=== PATIENT | female | born 1950 | race Caucasian/White ===

== ENCOUNTER 2018-07-28 04:01 | Emergency (ER) | payer BC ==
[~2018-07-28] VITALS: Ht 157.5 cm; Wt 79.4 kg
[2018-07-28] MEDS ORDERED: NS IV 1000 ML 1,000 ML IV ONE (04:26)
[2018-07-28] MEDS ORDERED: HYOSCYAMINE 0.125 MG (LEVSIN) TAB PO ONE (04:30)
[2018-07-28] MEDS ORDERED: PANTOPRAZOLE 40 MG (PROTONIX) VIAL IV ONE (04:30)
[2018-07-28] MEDS ORDERED: ONDANSETRON 4 MG/2 ML (SDV) Z0FRAN IVP ONE (04:30)
[2018-07-28] MEDS ORDERED: KETOROLAC 30 MG/ML VIAL IVP ONE (04:30)
--- NOTE | 2018-07-28 04:36 | ED Abdominal Pain ---
General Stated Complaint: STOMACH PAIN, DIAHRREA Source of Information: Patient History of Present Illness Date Seen by Provider: Jul 28, 2018 Time Seen by Provider: 04:15 Initial Comments PT ARRIVES VIA POV FROM HOME C/O SEVERE EPIGASTRIC PAIN, RADIATING AROUND TO RIGHT MID BACK PAIN WOKE HER UP AT 0200 C/O NAUSEA AND HAS VOMITED A COUPLE OF TIMES HAS HAD A LARGE AMOUNT OF DIARRHEA--AT LEAST 5-6 TIMES. NO BLACK/BLOODY/TARRY STOOLS NO PROBLEMS URINATING NO KNOWN FEVER NO HISTORY OF SIMILAR NO PRIOR ABDOMINAL SURGERIES NO SICK CONTACTS OR SUSPICIOUS. PT AND ATE THE SAME THING--EACH HAD HALF OF THE SAME SANDWICH. PCP: GARRET PARTIDA AT [facility] Allergies and Home Medications Allergies Coded Allergies: Sulfa (Sulfonamide Antibiotics) (Verified Allergy, Unknown, 07/28/18) Home Medications Hyoscyamine Sulfate 0.125 Mg Tab.subl, 1-2 TAB SL Q4H Prescribed by: ACOSTA GOMEZ on 07/28/18 0608 Lactobacillus Acidophilus 1 Each Capsule, 2 EACH PO QID Prescribed by: ACOSTA GOMEZ on 07/28/18 0608 Nitrofurantoin Monohyd/M-Cryst 100 Mg Capsule, 100 MG PO BID Prescribed by: ACOSTA GOMEZ on 07/28/18 0608 Ondansetron 4 Mg Tab.rapdis, 4 MG PO Q4H Prescribed by: ACOSTA GOMEZ on 07/28/18 0608 Pantoprazole Sodium 40 Mg Tablet.dr, 40 MG PO DAILY Prescribed by: ACOSTA GOMEZ on 07/28/18 06 Patient Home Medication List Home Medication List Reviewed: Yes Review of Systems Review of Systems Constitutional: no symptoms reported Respiratory: No Symptoms Reported; Denies Cough, Denies Shortness of Air Cardiovascular: No Symptoms Reported; Denies Chest Pain, Denies Lightheadedness, Denies Palpitations Gastrointestinal: See HPI, Abdominal Pain, Diarrhea, Nausea, Poor Appetite, Vomiting Genitourinary: No Symptoms Reported Musculoskeletal: see HPI, back pain Skin: no symptoms reported Psychiatric/Neurological: No Symptoms Reported Endocrine: No Symptoms Reported Hematologic/Lymphatic: No Symptoms Reported Past Qkknwut-Ggebkt-Mpefue Hx Patient Social History Alcohol Use: Occasionally Uses Recreational Drug Use: No Smoking Status: Never a Smoker Recent Foreign Travel: No Contact w/Someone Who Travel: No Past Medical History Surgeries: Yes (BILATERAL KNEE REPLACEMENTS; EGD/COLONOSCOPY 2008) Joint Replacement, Orthopedic, Tonsillectomy Respiratory: No Cardiac: Yes High Cholesterol, Hypertension 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 oz. kg; BMI Method: General Appearance: WD/WN, other (WELL GROOMED. LOOKS UNCOMFORTABLE, HOLDING EPIGASTRIC AREA. ) HEENT: PERRL/EOMI; No scleral icterus (R), No scleral icterus (L) Neck: normal inspection Respiratory: normal breath sounds, no respiratory distress, no accessory muscle use Cardiovascular: normal peripheral pulses, regular rate, rhythm, no edema, no JVD, no murmur Gastrointestinal: normal bowel sounds, soft, no organomegaly, no pulsatile mass; No distended; guarding (MILD GUARDING OF EPIGASTRIC AREA), tenderness (MODERATE TENDERNESS TO EPIGASTRIC AREA AND LATERAL LUQ AND LEFT LOWER POSTERIOR RIB AREA); No hernia, No mass Extremities: normal inspection, no pedal edema, normal capillary refill Back: CVA tenderness (L) 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, no motor/sensory deficits, alert, oriented x 3 Skin: normal color, warm/dry; No rash Progress/Results/Core Measures Results/Orders Lab Results Laboratory Tests Test 07/28/18 04:30 07/28/18 04:53 07/28/18 05:00 Range/Units White Blood Count 19.9 H 4.3-11.0 10^3/uL Red Blood Count 5.53 4.35-5.85 10^6/uL Hemoglobin 15.6 11.5-16.0 G/DL Hematocrit 47 35-52 % Mean Corpuscular Volume 85 80-99 FL Mean Corpuscular Hemoglobin 28 25-34 PG Mean Corpuscular Hemoglobin Concent 33 32-36 G/DL Red Cell Distribution Width 14.0 10.0-14.5 % Platelet Count 280 130-400 10^3/uL Mean Platelet Volume 11.5 H 7.4-10.4 FL Neutrophils (%) (Auto) 80 H 42-75 % Lymphocytes (%) (Auto) 11 L 12-44 % Monocytes (%) (Auto) 7 0-12 % Eosinophils (%) (Auto) 2 0-10 % Basophils (%) (Auto) 0 0-10 % Neutrophils # (Auto) 15.9 H 1.8-7.8 X 10^3 Lymphocytes # (Auto) 2.1 1.0-4.0 X 10^3 Monocytes # (Auto) 1.5 H 0.0-1.0 X 10^3 Eosinophils # (Auto) 0.3 0.0-0.3 10^3/uL Basophils # (Auto) 0.0 0.0-0.1 10^3/uL Neutrophils % (Manual) 83 % Lymphocytes % (Manual) 7 % Monocytes % (Manual) 9 % Eosinophils % (Manual) 1 % Blood Morphology Comment NORMAL Sodium Level 140 135-145 MMOL/L Potassium Level 4.1 3.6-5.0 MMOL/L Chloride Level 106 98-107 MMOL/L Carbon Dioxide Level 19 L 21-32 MMOL/L Anion Gap 15 H 5-14 MMOL/L Blood Urea Nitrogen 16 7-18 MG/DL Creatinine 0.89 0.60-1.30 MG/DL Estimat Glomerular Filtration Rate > 60 BUN/Creatinine Ratio 18 Glucose Level 153 H 70-105 MG/DL Calcium Level 10.1 8.5-10.1 MG/DL Corrected Calcium 8.5-10.1 MG/DL Magnesium Level 1.8 1.8-2.4 MG/DL Total Bilirubin 0.5 0.1-1.0 MG/DL Aspartate Amino Transf (AST/SGOT) 23 5-34 U/L Alanine Aminotransferase (ALT/SGPT) 30 0-55 U/L Alkaline Phosphatase 88 40-136 U/L Total Protein 7.8 6.4-8.2 GM/DL Albumin 4.7 H 3.2-4.5 GM/DL Amylase Level 94 25-125 U/L Lipase 23 8-78 U/L Glucometer 132 H 70-110 MG/DL Urine Color YELLOW Urine Clarity CLEAR Urine pH 5 5-9 Urine Specific [place] 1.025 H 1.016-1.022 Urine Protein 1+ H NEGATIVE Urine Glucose (UA) NEGATIVE NEGATIVE Urine Ketones 1+ H NEGATIVE Urine Nitrite NEGATIVE NEGATIVE Urine Bilirubin 1+ H NEGATIVE Urine Urobilinogen NORMAL NORMAL MG/DL Urine Leukocyte Esterase 3+ H NEGATIVE Urine RBC (Auto) NEGATIVE NEGATIVE Urine RBC NONE /HPF Urine WBC 2-5 /HPF Urine Squamous Epithelial Cells 5-10 /HPF Urine Crystals NONE /LPF Urine Bacteria FEW H /HPF Urine Casts PRESENT /LPF Urine Hyaline Casts 2-5 H /LPF Urine Mucus SMALL H /LPF Urine Culture Indicated YES My Orders Orders - ACOSTA GOMEZ DO Ed Iv/Invasive Line Start (07/28/18 04:19) Monitor-Rhythm Ecg Trace Only (07/28/18 04:19) Straight Cath For Spec.-Adult (07/28/18 04:19) Amylase (07/28/18 04:19) Cbc With Automated Diff (07/28/18 04:19) Comprehensive Metabolic Panel (07/28/18 04:19) Lipase (07/28/18 04:19) Magnesium (07/28/18 04:19) Ua Culture If Indicated (07/28/18 04:19) Ed Iv/Invasive Line Start (07/28/18 04:26) Ns Iv 1000 Ml (Sodium Chloride 0.9%) (07/28/18 04:26) Accucheck Stat ONCE (07/28/18 04:26) Ekg Tracing (07/28/18 04:26) Ondansetron Injection (Zofran Injectio (07/28/18 04:30) Hyoscyamine Sl Tablet (Levsin Sl Tablet) (07/28/18 04:30) Ketorolac Injection (Toradol Injection) (07/28/18 04:30) Pantoprazole Injection (Protonix Injecti (07/28/18 04:30) Manual Differential (07/28/18 04:30) Ct Abdomen/Pelvis W (07/28/18 04:59) Acute Abd Series (07/28/18 04:59) Urine Culture (07/28/18 05:00) Iohexol Injection (Omnipaque 350 Mg/Ml 1 (07/28/18 05:45) Received Contrast (Hold Metformin- Contr (07/28/18 05:45) Ns (Ivpb) (Sodium Chloride 0.9%) (07/28/18 05:45) Medications Given in ED Current Medications Medications Dose Ordered Sig/Tomas Route Start Time Stop Time Status Last Admin Dose Admin Hyoscyamine Sulfate 0.025 mg ONCE ONCE PO 07/28/18 04:30 07/28/18 04:31 DC 07/28/18 04:40 0.025 MG Iohexol 100 ml ONCE ONCE IV 07/28/18 05:45 07/28/18 05:46 DC 07/28/18 05:52 100 ML Ketorolac Tromethamine 30 mg ONCE ONCE IVP 07/28/18 04:30 07/28/18 04:31 DC 07/28/18 04:39 30 MG Ondansetron HCl 8 mg ONCE ONCE IVP 07/28/18 04:30 07/28/18 04:31 DC 07/28/18 04:39 8 MG Pantoprazole 40 mg ONCE ONCE IV 07/28/18 04:30 07/28/18 04:31 DC 07/28/18 04:39 40 MG Sodium Chloride 250 ml ONCE ONCE IV 07/28/18 05:45 07/28/18 05:46 DC 07/28/18 05:52 80 ML Sodium Chloride 1,000 ml @ 0 mls/hr Q0M ONCE IV 07/28/18 04:26 07/28/18 04:28 DC 07/28/18 04:39 999 MLS/HR Vital Signs/I&O 07/28/18 04:05 Temp 97.9 Pulse 112 Resp 18 B/P (MAP) 148/97 (114) Pulse Ox 99 O2 Delivery Room Air Progress Progress Note : Progress Note SYMPTOMS RESOLVED WITH MEDICATIONS PT TOLERATING WATER AND ICE CHIPS PRIOR TO DISMISSAL NO VOMITING OR DIARRHEA DURING ER STAY Initial ECG Impression Date: Jul 28, 2018 Initial ECG Impression Time: 05:10 Initial ECG Rate: 81 Initial ECG Rhythm: Normal Sinus Initial ECG Impression: Nonspecific Changes Diagnostic Imaging Comments ABDOMEN XRAYS--NO ACUTE PROCESS, PENDING RADIOLOGIST REVIEW CT ABDOMEN/PELVIS--DIFFUSE FLUID-FILLED ADN HYPEREMIC SMALL AND LARGE BOWEL-C/W GASTROENTERITIS, COLONIC DIVERTICULOSIS. PER [facility] VIA FAX @ 1181 Reviewed: Reviewed by Me Departure Impression Primary Impression: Gastroenteritis Additional Impressions: Upper abdominal pain Urinary tract infection Disposition: HOME, SELF-CARE Condition: Improved Departure-Patient Inst. Referrals: REYES PARTIDA (PCP) Primary Care Physician Patient Instructions: Urinary Tract Infection, Adult (DC), Viral Gastroenteritis, Adult (DC) Add. Discharge Instructions: CLEAR LIQUIDS--WATER, BROTH, JELLO, GATORADE WHEN YOUR NAUSEA IS BETTER, ADD BRATS DIET TO CLEAR LIQUIDS--BANANAS, RICE, APPLESAUCE, TOAST, SALTINES FOLLOW UP WITH YOUR DR IN 2-3 DAYS IF NO BETTER RETURN TO ER IF WORSE Scripts Pantoprazole Sodium (Protonix) 40 Mg Tablet.dr 40 MG PO DAILY, #15 TAB Prov: ACOSTA GOMEZ DO 07/28/18 Ondansetron (Ondansetron Odt) 4 Mg Tab.rapdis 4 MG PO Q4H for Nausea/Vomiting, #10 TAB Prov: KRISTAL GOMEZA K DO 07/28/18 Nitrofurantoin Monohyd/M-Cryst (Macrobid 100 mg Capsule) 100 Mg Capsule 100 MG PO BID, #20 CAP Prov: ACOSTA GOMEZ DO 07/28/18 Hyoscyamine Sulfate (Levsin-Sl) 0.125 Mg Tab.subl 1-2 TAB SL Q4H for Abdominal Pain, #15 TAB Prov: ACOSTA GOMEZ K 07/28/18 Lactobacillus Acidophilus (Acidophilus) 1 Each Capsule 2 EACH PO QID, #80 CAP Prov: KRISTAL GOMEZA K DO 07/28/18 KRISTAL GOMEZA Davin HATHAWAY Jul 28, 2018 04:36
[2018-07-28 04:37] LABS: BASOPHILS % (AUTO) 0 % (0-10); EOSINOPHILS # (AUTO) 0.3 10^3/uL (0.0-0.3); EOSINOPHILS % (AUTO) 2 % (0-10); HEMATOCRIT 47 % (35-52); HEMOGLOBIN 15.6 G/DL (11.5-16.0); LYMPHOCYTES # (AUTO) 2.1 X 10^3 (1.0-4.0); LYMPHOCYTES % (AUTO) 11 % (12-44); MEAN CORPUSCULAR HEMOGLOBIN 28 PG (25-34); MEAN CORPUSCULAR HGB CONC 33 G/DL (32-36); MEAN CORPUSCULAR VOLUME 85 FL (80-99); MEAN PLATELET VOLUME 11.5 FL (7.4-10.4); MONOCYTES # (AUTO) 1.5 X 10^3 (0.0-1.0); MONOCYTES % (AUTO) 7 % (0-12); NEUTROPHILS # (AUTO) 15.9 X 10^3 (1.8-7.8); NEUTROPHILS % (AUTO) 80 % (42-75); PLATELET COUNT 280 10^3/uL (130-400); WHITE BLOOD COUNT 19.9 10^3/uL (4.3-11.0)
[2018-07-28 04:54] LABS: ALANINE AMINOTRANSFERASE 30 U/L (0-55); ALBUMIN 4.7 GM/DL (3.2-4.5); ALKALINE PHOSPHATASE 88 U/L (40-136); AMYLASE 94 U/L (25-125); BILIRUBIN,TOTAL 0.5 MG/DL (0.1-1.0); BUN/CREATININE RATIO 18; CALCIUM 10.1 MG/DL (8.5-10.1); CARBON DIOXIDE 19 MMOL/L (21-32); CHLORIDE 106 MMOL/L (98-107); CREATININE SERUM 0.89 MG/DL (0.60-1.30); GFR ESTIMATED > 60; GLUCOSE 153 MG/DL (70-105); LIPASE 23 U/L (8-78); MAGNESIUM 1.8 MG/DL (1.8-2.4); POTASSIUM 4.1 MMOL/L (3.6-5.0); SODIUM 140 MMOL/L (135-145); TOTAL PROTEIN 7.8 GM/DL (6.4-8.2)
[2018-07-28 04:56] LABS: EOSINOPHILS % (MANUAL) 1 %; LYMPHOCYTES % (MANUAL) 7 %; MONOCYTES % (MANUAL) 9 %; NEUTROPHILS % (MANUAL) 83 %; RBC MORPH NORMAL
[2018-07-28 05:08] LABS: CLARITY,URINE CLEAR; COLOR,URINE YELLOW; GLUCOSE, URINE (UA) NEGATIVE (NEGATIVE); KETONES,URINE 1+ (NEGATIVE); LEUKOCYTE ESTERASE ,URINE 3+ (NEGATIVE); NITRITE,URINE NEGATIVE (NEGATIVE); PH,URINE 5 (5-9); PROTEIN,URINE 1+ (NEGATIVE); UROBILINOGEN,URINE NORMAL (NORMAL)
[2018-07-28 05:15] LABS: BACTERIA,URINE FEW /HPF; BILIRUBIN,URINE 1+ (NEGATIVE)
[2018-07-28] MEDS ORDERED: IOHEXOL 350 MG/ML 100 ML (OMNIPAQUE 350) VIAL IV ONE (05:45)
[2018-07-28] MEDS ORDERED: HOLD METFORMIN - RECEIVED CONTRAST 20 ML VIAL IV SCH (05:45)
[2018-07-28] MEDS ORDERED: NS 250 ML (IVPB) BAG IV ONE (05:45)
[2018-07-28] MEDS ORDERED: HYOS0.1283 SL (06:08)
[2018-07-28] MEDS ORDERED: ONDA4TAB11 PO (06:08)
[2018-07-28] MEDS ORDERED: PANT40TA2 PO (06:08)
[2018-07-28] MEDS ORDERED: NITR-65 PO (06:08)
[2018-07-28] MEDS ORDERED: LACT1CAP8 PO (06:08)
[2018-07-28 06:31] VITALS: BP 112/59
--- NOTE | 2018-07-28 07:01 | Diagnostic Imaging Report ---
PROCEDURE: CT abdomen and pelvis with contrast. TECHNIQUE: Multiple contiguous axial images were obtained through the abdomen and pelvis after administration of intravenous contrast. Auto Exposure Controls were utilized during the CT exam to meet ALARA standards for radiation dose reduction. INDICATION: Abdominal pain radiating to left flank. Vomiting. Diarrhea. COMPARISON: Abdominal series radiographs 07/28/2018. FINDINGS: The liver, gallbladder, pancreas, spleen, adrenals, collecting systems and bladder are negative. Reproductive structures grossly unremarkable. Mild colonic diverticulosis without evidence of active diverticulitis. There is fluid throughout most of the small bowel and colon. No evidence of bowel obstruction. No free intraperitoneal air or fluid. No lymphadenopathy. No acute osseous findings. IMPRESSION: 1. Fluid throughout most of the small bowel and colon without dilatation may be due to an enteritis. 2. Colonic diverticulosis without evidence of active diverticulitis. Dictated by: Dictated on workstation # [id number]
--- NOTE | 2018-07-28 07:13 | Diagnostic Imaging Report ---
EXAM: ACUTE ABD SERIES INDICATION: Abdominal pain radiating to left flank. COMPARISON: None. FINDINGS: Normal heart size and pulmonary vascularity. No dense consolidation, pleural effusion or pneumothorax. No acute osseous findings. No free intraperitoneal air. Nonspecific bowel gas pattern. No large stool burden. IMPRESSION: No acute radiographic findings in the chest or abdomen. Dictated by: Dictated on workstation # [id number]
== END 2018-07-28 06:32 | disposition home or self-care (01) ==
LOC: EDUNIT# 04:01 → ER 04:04
DX: K52.9 Noninfective gastroenteritis and colitis, unspecified (principal); N39.0 Urinary tract infection, site not specified; E78.00 Pure hypercholesterolemia, unspecified; I10 Essential (primary) hypertension; E11.9 Type 2 diabetes mellitus without complications; Z87.19 Personal history of other diseases of the digestive system; Z88.2 Allergy status to sulfonamides; Z96.653 Presence of artificial knee joint, bilateral; Z90.89 Acquired absence of other organs
CPT/HCPCS: 36415; 74022; 74177; 80053; 81000; 82150; 82962; 83690; 83735; 85007; 85027; 87088; 93005; 93041; 96361; 96374; 96375

== ENCOUNTER 2020-09-03 06:47 | Outpatient (CLI) | payer MEDICARE ==
[~2020-09-03] VITALS: Ht 157.5 cm; Wt 75.0 kg
[~2020-09-03 06:47] MED LIST: HYOS0.1283 SL; LACT1CAP8 PO; NITR-65 PO; ONDA4TAB11 PO; PANT40TA2 PO
[2020-09-04] MEDS ORDERED: AMLO-168 PO (12:54)
[2020-09-04] MEDS ORDERED: CHOL-34 PO (12:54)
[2020-09-04] MEDS ORDERED: FLAX10004 PO (12:54)
[2020-09-04] MEDS ORDERED: OMEG1CAP58 PO (12:54)
[2020-09-04] MEDS ORDERED: ROSU5TAB13 PO (12:54)
[2020-09-04] MEDS ORDERED: METF-397 PO (12:54)
[2020-09-04] MEDS ORDERED: UBID100C17 PO (12:54)
[2020-09-04] MEDS ORDERED: LACT1CAP39 PO (12:54)
[2020-09-04] MEDS ORDERED: NFBIOT1000 PO (12:55)
== END 2020-09-04 13:09 | disposition home or self-care (01) ==
LOC: PREOP 06:47
PROVIDERS: ATTEND Specialist
DX: Z01.818 Encounter for other preprocedural examination (principal)

== ENCOUNTER 2020-09-07 08:16 | Day surgery (SDC) | payer MEDICARE, OTHER ==
[~2020-09-07] VITALS: Ht 157.5 cm; Wt 75.0 kg
[~2020-09-07 08:16] MED LIST changes: +AMLO-168 PO; +CHOL-34 PO; +FLAX10004 PO; +LACT1CAP39 PO; +METF-397 PO; +NFBIOT1000 PO; +OMEG1CAP58 PO; +ROSU5TAB13 PO; +UBID100C17 PO
[2020-09-07] MEDS ORDERED: MOXIFLOXACIN OPHTH SOLN 5 MG/ML 0.3 ML SYRINGE OP ONE (08:30)
[2020-09-07] MEDS ORDERED: LIDOCAINE PF 1% 2 ML VIAL IR PRN (08:30)
[2020-09-07] MEDS ORDERED: POVIDONE (BETADINE) OPHTH SOLN 5% 30 ML OP ONE (08:30)
[2020-09-07] MEDS ORDERED: TIMOLOL MALEATE 0.5% 5 ML (TIMOPTIC) BTL OU PRN (08:30)
[2020-09-07] MEDS: TETRACAINE 0.5% OPHTH SOLN 4 ML BTL (SINGLE DOSE ONLY) OU PRN ×4 (08:37→08:54)
[2020-09-07] MEDS: TROPICAMIDE 1% OPH SOLN (MYDRIACYL) 15 ML BTL OP SCH ×3 (08:43→08:54)
[2020-09-07] MEDS: PHENYLEPHRINE 10% OPHTH (NEO-SYN) 5 ML BTL OU SCH ×3 (08:44→08:54)
[2020-09-07 08:46] VITALS: BP 167/81
[2020-09-07] MEDS ORDERED: MIDAZOLAM 2 MG/2 ML (VERSED) VIAL ONE (09:17)
--- NOTE | 2020-09-07 09:27 | Ophthalmologist Pre-Op Note ---
Pre-Operative Progress Note H&P Reviewed The H&P was reviewed, patient examined and no changes noted. Date H&P Reviewed: Sep 07, 2020 Time H&P Reviewed: 09:27 Pre-Op Dx Cataract, Right Eye JAMES MELISSA MD Sep 07, 2020 09:27
--- NOTE | 2020-09-07 09:52 | Ophthalmology Operative Report ---
Cataract removal/placement IOL PREOPERATIVE DIAGNOSIS: Cataract Right Eye POSTOPERATIVE DIAGNOSIS: Cataract Right Eye PROCEDURE: Cataract removal and placement of posterior chamber implant, right eye SURGEON: Richar Melissa ANESTHESIA: Topical with sedation COMPLICATIONS: None ESTIMATED BLOOD LOSS: Minimal DESCRIPTION OF PROCEDURE: After proper informed consent was obtained, the patient, a 70 female, was taken to the Operating Room and the right eye was anesthetized with tetracaine. The right eye was then prepped and draped in the usual manner. A wire lid speculum was placed. A paracentesis was made at the left hand position. Preservative free lidocaine was injected into the anterior chamber followed by viscoelastic. A clear corneal incision was made in the temporal position. A capsulorrhexis was preformed and the central nuclear and cortical material were removed. The posterior capsule was polished and Pavel 21.0 AU00T0 IOL was placed into the capsular bag. The residual viscoelastic was aspirated and balanced saline solution was injected into the anterior chamber. Moxifloxacin was injected into the anterior chamber. The wound was checked and found to be water tight. The patient tolerated the procedure well without complications. RICHAR MELISSA MD Sep 07, 2020 09:52
[2020-09-07 09:55] VITALS: BP 135/79
--- NOTE | 2020-09-07 13:16 | Anesthesia-General Post-Op ---
MAC Patient Condition Mental Status/LOC: Same as Preop Cardiovascular: Satisfactory Nausea/Vomiting: Absent Respiratory: Satisfactory Pain: Controlled Complications: Absent Post Op Complications Complications None Follow Up Care/Instructions Patient Instructions None needed. Anesthesiology Discharge Order Discharge Order Patient was doing well after the procedure with no complaints, stable vital signs, no apparent adverse anesthesia problems. CARLENE BENSON DO Sep 07, 2020 13:16
== END 2020-09-07 09:55 ==
LOC: SDC 08:16
PROVIDERS: ATTEND Specialist
DX: E11.36 Type 2 diabetes mellitus with diabetic cataract (principal); H25.11 Age-related nuclear cataract, right eye; R03.0 Elevated blood-pressure reading, without diagnosis of hypertension; M19.90 Unspecified osteoarthritis, unspecified site; E78.00 Pure hypercholesterolemia, unspecified; Z79.899 Other long term (current) drug therapy; Z79.84 Long term (current) use of oral hypoglycemic drugs
CPT/HCPCS: 66984; 82947; V2632

== ENCOUNTER 2020-09-28 08:04 | Day surgery (SDC) | payer MEDICARE, OTHER ==
[~2020-09-28] VITALS: Ht 157.5 cm; Wt 75.0 kg
[2020-09-28] MEDS: TETRACAINE 0.5% OPHTH SOLN 4 ML BTL (SINGLE DOSE ONLY) OU PRN ×4 (08:13→08:31)
[2020-09-28] MEDS ORDERED: POVIDONE (BETADINE) OPHTH SOLN 5% 30 ML OP ONE (08:15)
[2020-09-28] MEDS ORDERED: LIDOCAINE PF 1% 2 ML VIAL IR PRN (08:15)
[2020-09-28] MEDS ORDERED: MOXIFLOXACIN OPHTH SOLN 5 MG/ML 0.3 ML SYRINGE OP ONE (08:15)
[2020-09-28] MEDS ORDERED: TIMOLOL MALEATE 0.5% 5 ML (TIMOPTIC) BTL OU PRN (08:15)
[2020-09-28 08:18] VITALS: BP 144/82
[2020-09-28] MEDS: PHENYLEPHRINE 10% OPHTH (NEO-SYN) 5 ML BTL OU SCH ×3 (08:20→08:31)
[2020-09-28] MEDS: TROPICAMIDE 1% OPH SOLN (MYDRIACYL) 15 ML BTL OP SCH ×3 (08:20→08:31)
[2020-09-28] MEDS ORDERED: MIDAZOLAM 2 MG/2 ML (VERSED) VIAL ONE (08:58)
--- NOTE | 2020-09-28 09:04 | Ophthalmologist Pre-Op Note ---
Pre-Operative Progress Note H&P Reviewed The H&P was reviewed, patient examined and no changes noted. Date H&P Reviewed: Sep 28, 2020 Time H&P Reviewed: 09:04 Pre-Op Dx Cataract, Left Eye JAMES MELISSA MD Sep 28, 2020 09:04
--- NOTE | 2020-09-28 09:26 | Ophthalmology Operative Report ---
Cataract removal/placement IOL PREOPERATIVE DIAGNOSIS: Cataract Left Eye POSTOPERATIVE DIAGNOSIS: Cataract Left Eye PROCEDURE: Cataract removal and placement of posterior chamber implant, left eye SURGEON: Richar Melissa ANESTHESIA: Topical with sedation COMPLICATIONS: None ESTIMATED BLOOD LOSS: Minimal DESCRIPTION OF PROCEDURE: After proper informed consent was obtained, the patient, a 70 female, was taken to the Operating Room and the left eye was anesthetized with tetracaine. The left eye was then prepped and draped in the usual manner. A wire lid speculum was placed. A paracentesis was made at the left hand position. Preservative free lidocaine was injected into the anterior chamber followed by viscoelastic. A clear corneal incision was made in the temporal position. A capsulorrhexis was preformed and the central nuclear and cortical material were removed. The posterior capsule was polished and an Pavel 21.5 AU00T0 was placed into the capsular bag. The residual viscoelastic was aspirated and balanced saline solution was injected into the anterior chamber. Moxifloxacin was injected into the anterior chamber. The wound was checked and found to be water tight. The patient tolerated the procedure well without complications. RICHAR MELISSA MD Sep 28, 2020 09:26
[2020-09-28 09:35] VITALS: BP 139/70
--- NOTE | 2020-09-28 12:47 | Anesthesia-General Post-Op ---
MAC Patient Condition Mental Status/LOC: Same as Preop Cardiovascular: Satisfactory Nausea/Vomiting: Absent Respiratory: Satisfactory Pain: Controlled Complications: Absent Post Op Complications Complications None Follow Up Care/Instructions Patient Instructions None needed. Anesthesiology Discharge Order Discharge Order Patient is doing well, no complaints, stable vital signs, no apparent adverse anesthesia problems. No complications reported per nursing. KAYA ASHLEY CRNA Sep 28, 2020 12:47
--- OUTSIDE RECORDS SUMMARY | 2020-09-30 14:19 | XMS REPORT | Clinical Summary ---
Author Author [facility] Organization [facility] Address Unknown Phone Unavailable Care Team Providers Care Metal Checker Name Role Phone Patricia Bill PCP Allergies Not on File Medications Not on file Active Problems Not on file Social History Date Tobacco Use Types Packs/Day Years Used Never Assessed Sex Assigned at Date Recorded Not on file Last Filed Vital Signs Not on file Plan of Treatment Health Maintenance Due Date Last Done Comments Td/Tdap# 1950 Zoster Vaccine# (1 of 2) 1999 Fall Risk Assessment # 2014 Osteoporosis Screening 2014 Pneumococcal Vaccine: 65+ 2014 Years (1 of 1 - PPSV23) Influenza Vaccine (#1) 2020 Results Not on filefrom Last 3 Months Advance Directives For more information, please contact: [phone] Patient Riveter Portable Machine Explanation Type Date Recorded Advance Directives and Living Will Power of Airplane Pilot Photogrammetry
== END 2020-09-28 09:37 ==
LOC: SDC 08:04
PROVIDERS: ATTEND Specialist
DX: E11.36 Type 2 diabetes mellitus with diabetic cataract (principal); H25.12 Age-related nuclear cataract, left eye; I10 Essential (primary) hypertension; M19.90 Unspecified osteoarthritis, unspecified site; E78.00 Pure hypercholesterolemia, unspecified; Z79.899 Other long term (current) drug therapy; Z79.84 Long term (current) use of oral hypoglycemic drugs
CPT/HCPCS: 66984; 82947; V2632